=== PATIENT | female | born 1930 | race Caucasian/White ===

== ENCOUNTER 2017-12-14 15:57 | Emergency (ER) | payer OTHER ==
[~2017-12-14] VITALS: Ht 157.5 cm; Wt 56.3 kg
[2017-12-14 16:35] LABS: BASOPHIL (%) 0.2 % (0-1); EOSINOPHIL (%) 0 % (0-5); HEMATOCRIT 35.4 % (36.0-46.0); HEMOGLOBIN 12.4 G/DL (11.9-15.5); IMMATURE GRANULOCYTE (%) 0.4 % (0.0-0.7); LYMPHOCYTE (%) 7.7 % (15-42); LYMPHOCYTE COUNT 0.8 K/uL (1.0-2.8); MCH 30.4 PG (29.0-34.0); MCV 86.8 FL (83-99); MONOCYTE (%) 2.2 % (3-12); MONOCYTE COUNT 0.2 K/uL (0-0.8); NEUTROPHIL (%) 89.5 % (45-76); NEUTROPHIL COUNT 9.5 K/uL (1.8-6.4); PLATELET COUNT 238 K/uL (156-360); RBC DIS.WIDTH-CV 13.9 % (11.8-14.6); RED BLOOD COUNT 4.08 M/uL (3.80-5.20); WHITE BLOOD COUNT 10.6 K/uL (4.1-10.2)
[2017-12-14 16:43] LABS: ALBUMIN 3.9 g/dL (3.2-4.8); CHLORIDE 107 mEq/L (99-109); POTASSIUM 4.5 mEq/L (3.7-5.4); SODIUM 140 mEq/L (136-147)
[2017-12-14 16:45] LABS: GLUCOSE 234 mg/dL (70-99); TOTAL PROTEIN 6.9 g/dL (6.4-8.3)
[2017-12-14 16:47] LABS: TOTAL BILIRUBIN 0.5 mg/dL (0.0-1.0)
[2017-12-14 16:49] LABS: ALKALINE PHOSPHATASE 75 IU/L (3-129); CREATININE 1.2 mg/dL (0.6-1.3); GFR ESTIMATE (CALCULATED) 45 mL/min/
[2017-12-14 16:50] LABS: UREA NITROGEN (BUN) 28 mg/dL (9-23)
[2017-12-14 16:51] LABS: AST (GOT) 14 IU/L (2-34)
[2017-12-14 16:52] LABS: ALT (GPT) 16 IU/L (3-49)
[2017-12-14 17:23] LABS: APPEARANCE CLEAR ((CLEAR)); BILIRUBIN NEGATIVE; BLOOD SMALL; COLOR STRAW ((YELLOW)); GLUCOSE (STRIP) 50; KETONES 5; LEUKOCYTES NEGATIVE; NITRITE NEGATIVE; PROTEIN (STRIP) NEGATIVE; SPECIFIC GRAVITY 1.013 (1.000-1.030); UROBILINOGEN 0.2 MG/DL (0.2-1.0)
[2017-12-14 17:27] LABS: BACTERIA NONE SEEN /HPF; EPITHELIAL CELLS RARE /HPF; MUCUS NONE SEEN /LPF; UCUL ADDED? NO; WHITE BLOOD CELLS 0-5 /HPF (0-5)
[2017-12-14] MEDS ORDERED: ANTIVERT25 MG PO (19:35)
[2017-12-14] MEDS ORDERED: LEVAQUIN750 MG PO (19:35)
[2017-12-14 20:09] VITALS: BP 146/54
== END 2017-12-14 20:10 | disposition home or self-care (01) ==
LOC: EME 15:57
PROVIDERS: Emergency Medicine
PROC: 0T9B70Z Drainage of Bladder with Drainage Device, Via Natural or Artificial Opening (ICD-10-PCS; principal; 2017-12-14)
DX: R33.9 Retention of urine, unspecified (principal); J06.9 Acute upper respiratory infection, unspecified; J40 Bronchitis, not specified as acute or chronic; R42 Dizziness and giddiness; R00.0 Tachycardia, unspecified
CPT/HCPCS: 71045; 80053; 81003; 85025; 93005; 99281; 99285

== ENCOUNTER 2017-12-17 11:33 | Inpatient (IN) | payer OTHER ==
[~2017-12-17] VITALS: Ht 160 cm; Wt 54.5 kg
[~2017-12-17 11:33] MED LIST: ANTIVERT25 MG PO; LEVAQUIN750 MG PO
[2017-12-17 13:05] LABS: BASOPHIL (%) 0.3 % (0-1); EOSINOPHIL (%) 1.3 % (0-5); EOSINOPHIL COUNT 0.2 K/uL (0-0.3); HEMOGLOBIN 13.8 G/DL (11.9-15.5); IMMATURE GRANULOCYTE (%) 0.4 % (0.0-0.7); LYMPHOCYTE (%) 17.4 % (15-42); MCH 29.9 PG (29.0-34.0); MCHC 34.5 G/DL (30.0-36.0); MCV 86.8 FL (83-99); MONOCYTE (%) 8.5 % (3-12); NEUTROPHIL (%) 72.1 % (45-76); NEUTROPHIL COUNT 8.3 K/uL (1.8-6.4); PLATELET COUNT 183 K/uL (156-360); RBC DIS.WIDTH-SD 44.1 % (39-53); RED BLOOD COUNT 4.61 M/uL (3.80-5.20); WHITE BLOOD COUNT 11.6 K/uL (4.1-10.2)
[2017-12-17 13:15] LABS: ALBUMIN 3.9 g/dL (3.2-4.8)
[2017-12-17 13:16] LABS: CHLORIDE 104 mEq/L (99-109); POTASSIUM 4.2 mEq/L (3.7-5.4); SODIUM 137 mEq/L (136-147)
[2017-12-17 13:18] LABS: GLUCOSE 205 mg/dL (70-99); TOTAL PROTEIN 7.2 g/dL (6.4-8.3)
[2017-12-17 13:20] LABS: TOTAL BILIRUBIN 0.6 mg/dL (0.0-1.0)
[2017-12-17 13:21] LABS: ALKALINE PHOSPHATASE 84 IU/L (3-129)
[2017-12-17 13:22] LABS: CREATININE 1.3 mg/dL (0.6-1.3); GFR ESTIMATE (CALCULATED) 41 mL/min/
[2017-12-17 13:23] LABS: AST (GOT) 18 IU/L (2-34); UREA NITROGEN (BUN) 19 mg/dL (9-23)
[2017-12-17 13:24] LABS: ALT (GPT) 13 IU/L (3-49)
[2017-12-17 13:32] LABS: TROP-I INTERPRETATION NEGATIVE; TROPONIN-I < 0.01 ng/mL (0.0-0.30)
[2017-12-17 14:14] LABS: THYROTROPIN (TSH) 0.17 MIU/L (0.4-5.5)
[2017-12-17 14:34] LABS: APPEARANCE CLEAR ((CLEAR)); BILIRUBIN NEGATIVE; BLOOD MODERATE; COLOR STRAW ((YELLOW)); GLUCOSE (STRIP) NEGATIVE; KETONES NEGATIVE; LEUKOCYTES MODERATE; NITRITE NEGATIVE; PROTEIN (STRIP) NEGATIVE; SPECIFIC GRAVITY 1.005 (1.000-1.030); UROBILINOGEN 0.2 MG/DL (0.2-1.0)
[2017-12-17 14:45] LABS: BACTERIA NONE SEEN /HPF; EPITHELIAL CELLS RARE /HPF; HYALINE CASTS 0-5 /LPF; MUCUS TRACE /LPF; UCUL ADDED? YES; WHITE BLOOD CELLS 15-20 /HPF (0-5)
[2017-12-17] MEDS ORDERED: LEVOTHYROXINE100 MCG PO (15:59)
[2017-12-17] MEDS ORDERED: LISINOPRIL5 MG PO (15:59)
[2017-12-17 18:08] VITALS: BP 147/61
[2017-12-17 19:34] VITALS: BP 146/70
[2017-12-17 23:20] VITALS: BP 149/66
[2017-12-18 04:23] VITALS: BP 114/57
[2017-12-18 06:33] LABS: MCH 29.9 PG (29.0-34.0); MCHC 33.2 G/DL (30.0-36.0); MCV 89.9 FL (83-99); PLATELET COUNT 159 K/uL (156-360); RBC DIS.WIDTH-CV 14.2 % (11.8-14.6); RBC DIS.WIDTH-SD 46.5 % (39-53); RED BLOOD COUNT 3.78 M/uL (3.80-5.20); WHITE BLOOD COUNT 13.2 K/uL (4.1-10.2)
[2017-12-18 06:44] LABS: CHLORIDE 108 MEQ/L (99-109); GFR ESTIMATE (CALCULATED) 56 mL/min/; GLUCOSE 137 mg/dL (70-99); HEMOGLOBIN 11.3 G/DL (11.9-15.5); POTASSIUM 4.2 MEQ/L (3.7-5.4); SODIUM 139 MEQ/L (136-147); UREA NITROGEN (BUN) 13 mg/dL (9-23)
[2017-12-18 08:00] VITALS: BP 116/57
[2017-12-18 11:15] VITALS: BP 165/68
[2017-12-18 16:12] VITALS: BP 142/53
[2017-12-18 19:15] VITALS: BP 134/60
[2017-12-18 23:25] VITALS: BP 119/58
[2017-12-19 03:25] VITALS: BP 139/63
[2017-12-19 06:36] LABS: HEMOGLOBIN 10.6 G/DL (11.9-15.5); MCHC 32.1 G/DL (30.0-36.0); MCV 90.4 FL (83-99); PLATELET COUNT 153 K/uL (156-360); RBC DIS.WIDTH-CV 14.1 % (11.8-14.6); RBC DIS.WIDTH-SD 46.5 % (39-53); RED BLOOD COUNT 3.65 M/uL (3.80-5.20); WHITE BLOOD COUNT 10.7 K/uL (4.1-10.2)
[2017-12-19 06:55] LABS: CHLORIDE 110 MEQ/L (99-109); CREATININE 1.1 MG/DL (0.6-1.3); GFR ESTIMATE (CALCULATED) 50 mL/min/; GLUCOSE 106 mg/dL (70-99); POTASSIUM 4.3 MEQ/L (3.7-5.4); SODIUM 140 MEQ/L (136-147); UREA NITROGEN (BUN) 15 mg/dL (9-23)
[2017-12-19 07:10] VITALS: BP 121/58
[2017-12-19 11:21] VITALS: BP 144/64
[2017-12-19 12:08] LABS: INTER. NORMALIZED RATIO 1.4
[2017-12-19 15:21] VITALS: BP 134/62
[2017-12-19 19:05] VITALS: BP 116/58
[2017-12-19] MEDS ORDERED: XALATAN2.5 ML BOTH EYES (20:30)
[2017-12-19 23:40] VITALS: BP 125/64
[2017-12-20 04:00] VITALS: BP 132/61
[2017-12-20 06:21] LABS: INTER. NORMALIZED RATIO 1.3
[2017-12-20 07:46] VITALS: BP 157/69
[2017-12-20 15:13] VITALS: BP 126/58
[2017-12-20 20:09] VITALS: BP 147/63
[2017-12-21 00:08] VITALS: BP 149/64
[2017-12-21 06:52] LABS: INTER. NORMALIZED RATIO 1.3
[2017-12-21 08:32] VITALS: BP 146/67
[2017-12-21 16:19] VITALS: BP 151/67
[2017-12-22 00:02] VITALS: BP 130/61
[2017-12-22 06:07] LABS: INTER. NORMALIZED RATIO 1.4
[2017-12-22 08:19] VITALS: BP 146/66
[2017-12-22 16:51] VITALS: BP 156/68
[2017-12-22 23:30] VITALS: BP 138/65
[2017-12-23 05:48] LABS: INTER. NORMALIZED RATIO 1.5
[2017-12-23 07:05] VITALS: BP 138/63
[2017-12-23] MEDS ORDERED: SERTRALINE HCL25 MG PO (14:38)
[2017-12-23] MEDS ORDERED: ALPRAZOLAM0.25 M2 PO (14:39)
[2017-12-23 15:34] VITALS: BP 158/62
[2017-12-23] MEDS ORDERED: LOVENOX60 MG/0.6 SC (16:44)
[2017-12-23] MEDS ORDERED: COUMADIN1 MG PO (16:44)
== END 2017-12-23 17:10 | DRG 176 ==
LOC: EME 11:33 → 2EAST 15:48 → EDOF 15:48 → 2EAST 15:48 → ENRESERV 16:17 → CANRESERV 16:17 → ENRESERV 16:42 → 2EAST 17:44
PROVIDERS: Emergency Medicine; Family Medicine
DX: I26.99 Other pulmonary embolism without acute cor pulmonale (principal); J45.909 Unspecified asthma, uncomplicated; J98.11 Atelectasis; I25.10 Atherosclerotic heart disease of native coronary artery without angina pectoris; I10 Essential (primary) hypertension; F41.9 Anxiety disorder, unspecified; F32.9 Major depressive disorder, single episode, unspecified; E03.9 Hypothyroidism, unspecified; J20.9 Acute bronchitis, unspecified; Z66 Do not resuscitate; M19.90 Unspecified osteoarthritis, unspecified site; T17.890A Other foreign object in other parts of respiratory tract causing asphyxiation, initial encounter; K59.00 Constipation, unspecified; J47.0 Bronchiectasis with acute lower respiratory infection; I70.0 Atherosclerosis of aorta; I25.2 Old myocardial infarction
CPT/HCPCS: 71045; 71046; 71275; 72100; 73522; 74177; 80048; 80053; 81003; 83605; 84439; 84443; 84484; 85025; 85027; 85610; 87040; 87086; 93005; 94799; 97530 GP; 99281; 99285; G0378; G8987 GO CL; G8988 GO CK; J0696; J1650